=== PATIENT | male | born 1995 | race Caucasian/White ===

== ENCOUNTER 2016-12-28 23:25 | Emergency (ER) | payer SELFPAY ==
[~2016-12-28] VITALS: Ht 185.4 cm; Wt 217.7 kg
[~2016-12-28 23:25] MED LIST: ALBU8.5H2 IH; AMOX1TAB63 PO; BENZ100C8 PO; CEFD300C3 PO; D-ME118S33 PO; FAMO-119 PO; PRD20T PO; SUCR1TAB36 PO; SULF1TAB38 PO
[2016-12-28] MEDS ORDERED: ONDANSETRON 4 MG/2 ML (SDV) Z0FRAN IVP ONE (23:45)
[2016-12-29 00:20] LABS: BILIRUBIN,URINE NEGATIVE (NEGATIVE); KETONES,URINE NEGATIVE (NEGATIVE); LEUKOCYTE ESTERASE ,URINE 1+ (NEGATIVE); NITRITE,URINE NEGATIVE (NEGATIVE); PH,URINE 7 (5-9); PROTEIN,URINE NEGATIVE (NEGATIVE); UROBILINOGEN,URINE 4 MG/DL (NORMAL)
[2016-12-29 00:24] LABS: BASOPHILS # (AUTO) 0.1 10^3/uL (0.0-0.1); BASOPHILS % (AUTO) 0 % (0-10); EOSINOPHILS # (AUTO) 0.3 10^3/uL (0.0-0.3); EOSINOPHILS % (AUTO) 2 % (0-10); LYMPHOCYTES # (AUTO) 3.1 X 10^3 (1.0-4.0); LYMPHOCYTES % (AUTO) 21 % (12-44); MEAN CORPUSCULAR HEMOGLOBIN 28 PG (25-34); MEAN CORPUSCULAR HGB CONC 32 G/DL (32-36); MEAN CORPUSCULAR VOLUME 87 FL (80-99); MEAN PLATELET VOLUME 10.3 FL (7.4-10.4); MONOCYTES # (AUTO) 0.9 X 10^3 (0.0-1.0); MONOCYTES % (AUTO) 6 % (0-12); NEUTROPHILS # (AUTO) 10.3 X 10^3 (1.8-7.8); NEUTROPHILS % (AUTO) 70 % (42-75); PLATELET COUNT 350 10^3/uL (130-400); RED BLOOD COUNT 4.71 10^6/uL (4.35-5.85); RED CELL DISTRIBUTION WIDTH 13.9 % (10.0-14.5); WHITE BLOOD COUNT 14.7 10^3/uL (4.3-11.0)
--- NOTE | 2016-12-29 00:25 | ED Abdominal Pain ---
General Chief Complaint: Abdominal/GI Problems Stated Complaint: UPPER RIGHT SIDE ABD/BACK PAIN Nursing Triage Note: ruq abdominal pain since 1800 Sepsis Screen: No Definite Risk Source of Information: Patient, Old Records Exam Limitations: No Limitations History of Present Illness Time Seen By Provider: 23:31 Initial Comments This 21-year-old gentleman presents to the emergency room with complaints of right upper quadrant pain radiating to the back. He had an episode lasting from 18:00 through 21:00. The pain started up again at 23:00. He ate pizza this evening at 19:00. He only ate one piece due to the pain. He has been drinking water since then. He reports having episodes of lesser pain previously that starts about 15-30 minutes after eating. Today he had nothing to eat before the first episode. He denies any constipation or diarrhea. He has nausea without vomiting. He denies any urinary symptoms. He has had sweats along with his pain but no fever. He currently rates his pain as 7/10. He states applying pressure to the right upper quadrant helps alleviate the pain. He ambulated into the emergency room and troponin himself here. He reports being evaluated last summer for a similar symptomatology. Review of the notes suggest that his pain was more epigastric at that time and felt to be related to ulcers or gastritis. He had been prescribed Pepcid therapy at that time. He has not been using antacid medication recently but he does continue to use sucralfate. His primary care provider is the [facility] clinic. Allergies and Home Medications Allergies Coded Allergies: No Known Drug Allergies (Unverified , 04/11/12) Home Medications Omeprazole 20 Mg Tablet.dr, 20 MG PO BID, #30 Prescribed by: SAMUEL LUCIANO on 12/29/16 0210 Review of Systems Constitutional: no symptoms reported EENTM: No Symptoms Reported Respiratory: No Symptoms Reported Cardiovascular: No Symptoms Reported Gastrointestinal: See HPI Genitourinary: No Symptoms Reported Musculoskeletal: no symptoms reported Skin: no symptoms reported Psychiatric/Neurological: No Symptoms Reported Endocrine: No Symptoms Reported Past Ceefpdq-Acbcnm-Czsjkp Hx Patient Social History Alcohol Use: Denies Use Recreational Drug Use: No Smoking Status: Never a Smoker 2nd Hand Smoke Exposure: No Recent Foreign Travel: No Contact w/Someone Who Travel: No Recent Infectious Disease Expo: No Recent Hopitalizations: No Seasonal Allergies Seasonal Allergies: No Surgeries HX Surgeries: No Respiratory Hx Respiratory Disorders: No Cardiovascular Hx Cardiac Disorders: No Neurological Hx Neurological Disorders: No Reproductive System Hx Reproductive Disorders: No Sexually Transmitted Disease: No Genitourinary Hx Genitourinary Disorders: No Gastrointestinal Hx Gastrointestinal Disorders: Yes Gastrointestinal Disorders: Gastroesophageal Reflux Musculoskeletal Hx Musculoskeletal Disorders: No Endocrine Hx Endocrine Disorders: Yes (morbid obesity) HEENT HX ENT Disorders: No Cancer Hx Cancer: No Psychosocial Hx Psychiatric Problems: No Integumentary HX Skin/Integumentary Disorder: No Blood Transfusions Hx Blood Disorders: No Physical Exam Vital Signs VS - Last 72 Hours, by Label 12/28/16 12/29/16 23:41 02:20 Temp 97.2 97.8 Pulse 95 90 Resp 20 20 B/P (MAP) 164/114 Pulse Ox 97 96 O2 Delivery Room Air Capillary Refill : Less Than 3 Seconds General Appearance: WD/WN, mild distress, obese HEENT: PERRL/EOMI, normal ENT inspection Neck: normal inspection Respiratory: lungs clear, normal breath sounds, no respiratory distress, no accessory muscle use Cardiovascular: regular rate, rhythm, no edema, no murmur Gastrointestinal: normal bowel sounds, soft, tenderness (right upper quadrant) Extremities: normal inspection Back: no CVA tenderness Neurologic/Psychiatric: grey tender II-XII nml as tested, no motor/sensory deficits, alert, normal mood/affect, oriented x 3 Skin: normal color, warm/dry Progress/Results/Core Measures Results/Orders Lab Results Laboratory Tests Test 12/28/16 23:45 12/28/16 23:50 Range/Units Urine Color YELLOW Urine Clarity CLEAR Urine pH 7 5-9 Urine Specific [place] 1.015 L 1.016-1.022 Urine Protein NEGATIVE NEGATIVE Urine Glucose (UA) NEGATIVE NEGATIVE Urine Ketones NEGATIVE NEGATIVE Urine Nitrite NEGATIVE NEGATIVE Urine Bilirubin NEGATIVE NEGATIVE Urine Urobilinogen 4 H NORMAL MG/DL Urine Leukocyte Esterase 1+ H NEGATIVE Urine RBC (Auto) NEGATIVE NEGATIVE Urine RBC NONE /HPF Urine WBC RARE /HPF Urine Squamous Epithelial Cells RARE /HPF Urine Crystals PRESENT H /LPF Urine Amorphous Sediment FEW CASIMIRO PHOSPHATE H /LPF Urine Bacteria TRACE /HPF Urine Casts NONE /LPF Urine Mucus NEGATIVE /LPF Urine Culture Indicated NO White Blood Count 14.7 H 4.3-11.0 10^3/uL Red Blood Count 4.71 4.35-5.85 10^6/uL Hemoglobin 13.0 L 13.3-17.7 G/DL Hematocrit 41 40-54 % Mean Corpuscular Volume 87 80-99 FL Mean Corpuscular Hemoglobin 28 25-34 PG Mean Corpuscular Hemoglobin Concent 32 32-36 G/DL Red Cell Distribution Width 13.9 10.0-14.5 % Platelet Count 350 130-400 10^3/uL Mean Platelet Volume 10.3 7.4-10.4 FL Neutrophils (%) (Auto) 70 42-75 % Lymphocytes (%) (Auto) 21 12-44 % Monocytes (%) (Auto) 6 0-12 % Eosinophils (%) (Auto) 2 0-10 % Basophils (%) (Auto) 0 0-10 % Neutrophils # (Auto) 10.3 H 1.8-7.8 X 10^3 Lymphocytes # (Auto) 3.1 1.0-4.0 X 10^3 Monocytes # (Auto) 0.9 0.0-1.0 X 10^3 Eosinophils # (Auto) 0.3 0.0-0.3 10^3/uL Basophils # (Auto) 0.1 0.0-0.1 10^3/uL Neutrophils % (Manual) 72 % Lymphocytes % (Manual) 20 % Monocytes % (Manual) 4 % Eosinophils % (Manual) 2 % Basophils % (Manual) 0 % Band Neutrophils 0 % Reactive Lymphocytes 2 % Polychromasia SLIGHT Anisocytosis SLIGHT Sodium Level 141 135-145 MMOL/L Potassium Level 4.0 3.6-5.0 MMOL/L Chloride Level 106 98-107 MMOL/L Carbon Dioxide Level 25 21-32 MMOL/L Anion Gap 10 5-14 MMOL/L Blood Urea Nitrogen 10 7-18 MG/DL Creatinine 0.94 0.60-1.30 MG/DL Estimat Glomerular Filtration Rate > 60 BUN/Creatinine Ratio 11 Glucose Level 114 H 70-105 MG/DL Calcium Level 9.4 8.5-10.1 MG/DL Total Bilirubin 0.2 0.1-1.0 MG/DL Aspartate Amino Transf (AST/SGOT) 20 5-34 U/L Alanine Aminotransferase (ALT/SGPT) 27 0-55 U/L Alkaline Phosphatase 107 40-136 U/L Total Protein 7.0 6.4-8.2 G/DL Albumin 4.0 3.2-4.5 G/DL Lipase 13 8-78 U/L My Orders Orders - SAMUEL MENESES MD Cbc With Automated Diff (12/28/16 23:40) Comprehensive Metabolic Panel (12/28/16 23:40) Lipase (12/28/16 23:40) Ua Culture If Indicated (12/28/16 23:40) Saline Lock/Iv-Start (12/28/16 23:40) Ondansetron Injection (Zofran Injectio (12/28/16 23:45) Manual Differential (12/28/16 23:50) Us Gallbladder 11349 (12/29/16 00:36) Lidocaine 2% Viscous 15 Ml (Xylocaine Vi (12/29/16 01:30) Antacid Suspension (Mylanta Suspension (12/29/16 01:30) Pantoprazole Tablet (Protonix Tablet) (12/29/16 02:15) Medications Given in ED Current Medications Medications Dose Ordered Sig/[place] Route Start Time Stop Time Status Last Admin Dose Admin Al Hydrox/Mg Hydrox/Simethicone 30 ml ONCE ONCE PO 12/29/16 01:30 12/29/16 01:31 DC 12/29/16 01:32 30 ML Lidocaine HCl 15 ml ONCE ONCE PO 12/29/16 01:30 12/29/16 01:31 DC 12/29/16 01:32 15 ML Ondansetron HCl 8 mg ONCE ONCE IVP 12/28/16 23:45 12/28/16 23:46 DC 12/28/16 23:53 8 MG Pantoprazole Sodium 40 mg ONCE ONCE PO 12/29/16 02:15 12/29/16 02:16 DC 12/29/16 02:09 40 MG Vital Signs/I&O Vital Sign - Last 12Hours 12/28/16 12/29/16 23:41 02:20 Temp 97.2 97.8 Pulse 95 90 Resp 20 20 B/P (MAP) 164/114 Pulse Ox 97 96 O2 Delivery Room Air Blood Pressure Mean: 131 Progress Note : Progress Note Patient was found to have leukocytosis on his labs. Ultrasound of the gallbladder was therefore ordered. Ultrasound revealed a normal gallbladder with presence of fatty liver disease. A GI cocktail was administered which completely relieved his pain. Discharge instructions were reviewed with patient. Diagnostic Imaging Diagonstic Imaging: Ultrasound Plain Films/CT/US/NM/MRI: abdomen Comments Gallbladder ultrasound discussed with the fish and wildlife technician. [employer] report reviewed. Hepatomegaly noted with echogenic liver that may be from fatty infiltrate or hepatocellular disease. Gallbladder was unremarkable. Pancreas and common bile duct were obscured. Departure Impression Impression: Primary Impression: Right upper quadrant pain Additional Impressions: Fatty liver disease, nonalcoholic Leukocytosis Qualified Codes: D72.829 - Elevated white blood cell count, unspecified Disposition: HOME, SELF-CARE Condition: Improved Departure-Patient Inst. Decision time for Depature: 01:50 Referrals: [facility] (PCP/Family) Primary Care Physician Patient Instructions: Nonalcoholic Fatty Liver Disease (DC), Acute Abdomen ( Belly Pain), Adult (DC) Add. Discharge Instructions: You may continue using Carafate (sucralfate) up to 4 times daily. It is best if used 30 minutes before meals and before bedtime. Add omeprazole 20 mg twice daily for 2 weeks and then decrease to once daily. Continue omeprazole as a maintenance medication until otherwise instructed by your doctor. Avoid the following: Large meals, eating close to bedtime, fatty or greasy foods , caffeine, carbonation, chocolate, alcohol, citrus fruits and juices, tomato products, spicy foods, mint, NSAID medications such as ibuprofen or naproxen, or anything else you know irritates your stomach. Weight loss will help reduce pressure on your stomach as well. The ultrasound noted fatty liver disease which can also cause pain. The treatment for fatty liver disease is weight loss. Please follow-up with your primary care provider within the next 2 weeks. Discuss endoscopy for further evaluation of your pain. All discharge instructions reviewed with patient and/or family. Voiced understanding. Scripts Omeprazole (Omeprazole) 20 Mg Tablet. 20 MG PO BID, #30 TAB Prov: SAMUEL MENESES MD 12/29/16 Copy Copies To 1: DIAN NEAL MD, JOSHUA T MD December 29, 2016 00:25
[2016-12-29 00:32] LABS: SQUAMOUS EPITHELIAL CELL,UR RARE /HPF; WBC,URINE RARE /HPF
[2016-12-29 00:42] LABS: ANISOCYTOSIS SLIGHT; BAND NEUTROPHILS 0 %; BASOPHILS % (MANUAL) 0 %; EOSINOPHILS % (MANUAL) 2 %; LYMPHOCYTES % (MANUAL) 20 %; NEUTROPHILS % (MANUAL) 72 %; POLYCHROMASIA SLIGHT; REACTIVE LYMPHOCYTES 2 %
[2016-12-29 00:43] LABS: ALANINE AMINOTRANSFERASE 27 U/L (0-55); ANION GAP 10 MMOL/L (5-14); ASPARTATE AMINO TRANSFERASE 20 U/L (5-34); BILIRUBIN,TOTAL 0.2 MG/DL (0.1-1.0); BLOOD UREA NITROGEN 10 MG/DL (7-18); BUN/CREATININE RATIO 11; CALCIUM 9.4 MG/DL (8.5-10.1); CARBON DIOXIDE 25 MMOL/L (21-32); CHLORIDE 106 MMOL/L (98-107); CREATININE SERUM 0.94 MG/DL (0.60-1.30); GFR ESTIMATED > 60; GLUCOSE 114 MG/DL (70-105); LIPASE 13 U/L (8-78); SODIUM 141 MMOL/L (135-145)
[2016-12-29] MEDS ORDERED: LIDOCAINE 2% VISCOUS 15 ML UDC PO ONE (01:30)
[2016-12-29] MEDS ORDERED: ANTACID SUSP 30 ML UDC (MYLANTA) PO ONE (01:30)
[2016-12-29] MEDS ORDERED: OMEP20TA7 PO (02:10)
[2016-12-29] MEDS ORDERED: PANTOPRAZOLE 40 MG (PROTONIX) TAB PO ONE (02:15)
[2016-12-29 02:20] VITALS: BP 144/98
--- NOTE | 2016-12-29 07:20 | Diagnostic Imaging Report ---
PROCEDURE: US Gallbladder. TECHNIQUE: Multiple real-time grayscale images were obtained over the right upper quadrant in various projections. INDICATION: Right upper quadrant pain. Findings: The pancreas is largely obscured. The liver is hyperechoic with increased attenuation of ultrasound beam, may relate to hepatic fatty infiltration or hepatitis. The craniocaudal measurement in the right hepatic lobe is 20 CM, suggestive of enlargement. The gallbladder demonstrate no stones, wall thickening or pericholecystic fluid. The CBD is obscured by bowel gas. The right kidney is 11.4 CM in length with no hydronephrosis or focal lesion. Hepatopetal flow in the portal vein is demonstrated. No fluid collection is demonstrated in the upper right abdomen. Sonographic Hamilton sign is not evaluated on this exam. IMPRESSION: 1. No gallstones or evidence of cholecystitis. 2. Hepatomegaly. Increased liver echogenicity could be related to underlying steatosis or hepatitis. Dictated by: Dictated on workstation # [id number]
== END 2016-12-29 02:16 | disposition home or self-care (01) ==
LOC: EDUNIT# 23:25 → ER 23:28
DX: R10.11 Right upper quadrant pain (principal); K76.0 Fatty (change of) liver, not elsewhere classified; D72.829 Elevated white blood cell count, unspecified; R11.0 Nausea
CPT/HCPCS: 36415; 76705; 80053; 81000; 83690; 85007; 85027; 96374

== ENCOUNTER 2018-10-21 22:05 | Emergency (ER) | payer SELFPAY ==
[~2018-10-21] VITALS: Ht 185.4 cm; Wt 217.7 kg
[~2018-10-21 22:05] MED LIST changes: +OMEP20TA7 PO
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
[2018-10-21] MEDS ORDERED: IBUPROFEN 800 MG (MOTRIN) TAB PO ONE (22:45)
[2018-10-21] MEDS ORDERED: ACETAMINOPHEN 500 MG TAB (TYLENOL) PO ONE (22:45)
--- NOTE | 2018-10-21 22:46 | ED Fever ---
History of Present Illness General Stated Complaint: FEVER Source: patient Exam Limitations: no limitations History of Present Illness Date Seen by Provider: Oct 21, 2018 Time Seen by Provider: 22:27 Initial Comments 23-year-old male who presents to the emergency room with complaints of a fever, coughing, congestion that started this morning around 8:00. He denies taking anything for his fever. His children and his are also being seen and evaluated in the emergency room for similar complaints. He reports that 4 days ago his oldest daughter was sent home from the emergency room for a fever and suspected influenza. Timing/Duration: this morning Fever Quality: low grade Associated Symptoms: muscle aches, other (congestion) Allergies and Home Medications Allergies Coded Allergies: No Known Drug Allergies (Unverified , 04/11/12) Home Medications Omeprazole 20 Mg Tablet.dr, 20 MG PO BID Prescribed by: SAMUEL LUCIANO on 12/29/16 0210 Patient Home Medication List Home Medication List Reviewed: Yes Review of Systems Review of Systems Constitutional: see HPI, fever EENTM: see HPI, nose congestion Respiratory: see HPI, cough All Other Systems Reviewed Negative Unless Noted: Yes Past Yalpsdq-Ygizov-Ldpvjc Hx Past Med/Social Hx: Reviewed Nursing Past Med/Soc Hx Patient Social History 2nd Hand Smoke Exposure: No Recent Foreign Travel: No Contact w/Someone Who Travel: No Recent Hopitalizations: No Seasonal Allergies Seasonal Allergies: No Past Medical History Surgeries: No Respiratory: No Cardiac: No Neurological: No Reproductive Disorders: No Sexually Transmitted Disease: No Genitourinary: No Gastrointestinal: Yes Gastroesophageal Reflux Musculoskeletal: No Endocrine: No HEENT: No Cancer: No Psychosocial: No Integumentary: No Blood Disorders: No Family Medical History Reviewed Nursing Family Hx Physical Exam Vital Signs - First Documented 10/21/18 10/21/18 22:48 23:11 Temp 99.5 Pulse 101 Resp 22 B/P (MAP) 149/101 (117) Pulse Ox 94 O2 Delivery Room Air Capillary Refill : Height: 6'1.00" Weight: 480lbs. oz. 217.747781ye; 60.98 BMI Method:Stated General Appearance: WD/WN, no apparent distress HEENT: PERRL/EOMI, normal ENT inspection, TMs normal, pharynx normal Respiratory: chest non-tender, lungs clear, normal breath sounds, no respiratory distress, no accessory muscle use, respiratory distress Cardiovascular: normal peripheral pulses, regular rate, rhythm, no edema, no gallop, no JVD, no murmur Extremities: normal capillary refill Neurologic/Psychiatric: alert, normal mood/affect, oriented x 3 Skin: normal color, warm/dry Progress/Results/Core Measures Suspected Sepsis SIRS Temperature: Pulse: Respiratory Rate: Blood Pressure / Mean: Results/Orders Micro Results Microbiology 10/21/18 Influenza Types A,B Antigen (MIKE) - Final, Complete My Orders Orders - RAI TAY Influenza A And B Antigens (10/21/18 22:27) Acetaminophen Tablet (Tylenol Tablet) (10/21/18 22:45) Ibuprofen Tablet (Motrin Tablet) (10/21/18 22:45) Rx-Oseltamivir Caps (Rx-Tamiflu Caps) (10/21/18 23:10) Vital Signs/I&O 10/21/18 10/21/18 10/21/18 10/22/18 22:48 22:49 23:11 07:46 Temp 99.5 99.5 99.5 99.5 Pulse 101 101 Resp 22 22 B/P (MAP) 149/101 (117) 149/101 (117) Pulse Ox 94 94 O2 Delivery Room Air Capillary Refill : Progress Note : Time: 23:09 Progress Note I have seen and evaluated the patient. I've informed him of his laboratory findings. We will be treating with Tamiflu. He agrees with plan of care, plans for discharge, return precautions were given. Departure Impression Primary Impression: Influenza A Disposition: 01 HOME, SELF-CARE Condition: Stable/Unchanged Departure-Patient Inst. Decision time for Depature: 23:09 Referrals: [facility] (PCP/Family) Primary Care Physician Patient Instructions: Flu Add. Discharge Instructions: Take medications as directed. Tylenol and Motrin as directed by the bottle for pain and fever relief. Drink plenty of clear liquids to stay hydrated. Return back to the emergency room for worsening symptoms or concerns as needed. Follow- up with her primary care provider within 1 week for recheck. RAI TAY Oct 21, 2018 22:46
[2018-10-21] MEDS ORDERED: RX-OSELTAMIVIR 75 MG (TAMIFLU) BOX OF 10 PO STA (23:10)
[2018-10-22 07:46] VITALS: BP 149/101
== END 2018-10-21 23:39 | disposition home or self-care (01) ==
LOC: EDUNIT# 22:05 → ER 22:07
DX: J10.1 Influenza due to other identified influenza virus with other respiratory manifestations (principal); K21.9 Gastro-esophageal reflux disease without esophagitis
CPT/HCPCS: 87804

== ENCOUNTER 2018-11-12 00:02 | Emergency (ER) | payer OTHER ==
[~2018-11-12] VITALS: Ht 188 cm; Wt 208.2 kg
--- OUTSIDE RECORDS SUMMARY | 2018-11-12 00:11 | XMS REPORT | Continuity of Care Document ---
Author Author [facility] Address Unknown Phone Unavailable Allergies Active Description Code Type Severity Reaction Onset Reported/Identified Relationship to Patient Clinical Status Yes No Known Drug Allergies [id number] Drug Allergy Unknown N/A 04/11/2012 Medications There [...] NICOTINE DEPENDENCE, CIGARETTES, UNCOMPL 10/04/2015 ANABEL HAWKINS WELDER PRODUCTION LINE GAS Ot H66.91 OTITIS MEDIA, UNSPECIFIED, RIGHT EAR 10/04/2015 ANABEL HAWKINS W[employer] GAS Ot J40 BRONCHITIS, NOT SPECIFIED ACUTE OR [...] GIDEON GILL, SAMUEL Vidal Ot R11.0 NAUSEA 12/29/2016 GIDEON GILL, SAMUEL Vidal Ot D72.829 ELEVATED WHITE BLOOD CELL COUNT, UNSPECI 12/29/2016 SAMUEL MENESES MD Ot K76.0 FATTY (CHANGE OF) LIVER, NOT ELSEWHERE C 12/29/2016 SAMUEL MENESES MD Ot R10.11 RIGHT UPPER QUADRANT PAIN 12/29/2016 SAMUEL MENESES MD Ot R11.0 NAUSEA 10/21/2018 RAI TAY Ot J10.1 FLU DUE TO OTH IDENT INFLUENZA VIRUS W O 10/21/2018 RAI TAY Ot K21.9 GASTRO-ESOPHAGEAL REFLUX DISEASE WITHOUT 10/21/2018 RAI TAY Ot R50.9 FEVER, UNSPECIFIED 10/23/2018 RAI TAY Ot J10.1 FLU DUE TO OTH IDENT INFLUENZA VIRUS W O 10/23/2018 RAI TAY Ot K21.9 GASTRO-ESOPHAGEAL REFLUX DISEASE WITHOUT 10/23/2018 RAI TAY Ot R50.9 FEVER, UNSPECIFIED 10/28/2018 RAI TAY Ot J10.1 FLU DUE TO OTH IDENT INFLUENZA VIRUS W O 10/28/2018 RAI TAY Ot K21.9 GASTRO-ESOPHAGEAL REFLUX DISEASE WITHOUT 10/28/2018 RAI TAY Ot R50.9 FEVER, UNSPECIFIED Procedures Code [place] [address] URINE DRUG SCREEN (IN-HOUSE ) 06/17/2013 62079 MRI EXTREMITY JOINT, LOWER LEFT, W/O CONTRAST [...] - 12/28/16 23:50 Lipase 13 U/L 8-78 Influenza virus A and B antigen detection - 10/21/18 22:27 CALL POSITIVES (F1 HELP) CALLED TO ER AT 2309 NRG FLU RESULT POSITIVE FOR INFLUENZA A ANTIGEN, NEG FOR B ANTIGEN, BY IA NRG Encounters ACCT No. Visit Date/Time Discharge Status Pt. Type Provider Facility Loc./Unit Complaint [id number] 06/17/2013 16:03:00 06/17/2013 23:59:59 CLS Outpatient DONATO SHARP DO [id number] 06/17/2013 16:03:00 06/17/2013 23:59:59 CLS Outpatient DONATO SHARP DO [id number] 10/21/2018 22:07:00 10/21/2018 23:39:00 DIS Outpatient RAI TAY [facility] ER FEVER [id number] 12/28/2016 23:28:00 12/29/2016 02:16:00 DIS Emergency SAMUEL MENESES MD Via [facility] ER UPPER RIGHT SIDE ABD/ BACK PAIN [id number] 03/05/2016 04:23:00 03/05/2016 06:12:00 DIS Emergency LANCE ZIMMERMAN DO Via [facility] ER CHEST AND BACK PAIN [id number] 10/04/2015 19:53:00 10/04/2015 21:36:00 DIS Emergency ANABEL HAWKINS APRN [facility] ER CONGESTION,EAR PAIN [id number] 06/03/2014 00:21:00 06/03/2014 02:18:00 DIS Emergency MAURICIO ESCOBEDO DO Via [facility] ER COUGH,EAR PAIN,SINUSES STUFFED UP [id number] 02/17/2013 19:46:00 02/17/2013 23:59:59 CLS Emergency [id number] 01/27/2013 23:21:00 01/27/2013 23:53:00 DIS Emergency [id number] 10/04/2015 19:54:00 Document Registration [id number] 08/13/2012 15:57:00 Document Registration [id number] 04/11/2012 16:52:00 Document Registration [id number] 08/22/2018 14:00:00 08/22/2018 23:59:[address] [facility]
[2018-11-12] MEDS ORDERED: RX-ALBUTEROL INHALER (PROAIR) 8 GM IH STA (00:28)
[2018-11-12] MEDS ORDERED: KETOROLAC 30 MG/ML VIAL IM ONE (00:30)
[2018-11-12] MEDS ORDERED: AMOXICILLIN 500 MG (POLYMOX) CAP PO STA (01:15)
[2018-11-12] MEDS ORDERED: AMOX500C2 PO (01:24)
[2018-11-12] MEDS ORDERED: FLUT9.9S NS (01:24)
--- NOTE | 2018-11-12 01:24 | ED Respiratory ---
General Chief Complaint: Cough/Cold/Flu Symptoms Stated Complaint: COUGH,POSS SINUS INFECTION Nursing Triage Note: PT AMB TO ROOM #10 W/O DIFFICULTY. A&OX4. C./O COUGH, CONGESTION, AND RT EAR PAIN FOR APPROX X3 WKS. PT STATES, "I GET TO COUGHING SO BAD I MAKE MYSELF VOMIT." REPORTS RT EAR PAIN RADIATES TO RT JAW. PT REPORTS HIS FAMILY WAS DIAGNOSED WITH INFLUENZA APPROX X3 WKS AGO AND COMPLETED PROPHYLACTIC TAMFILU PRESCRIPTION. MOIST HACKING COUGH NOTED. PROVIDER IN ROOM DURING TRIAGE. Source: patient Exam Limitations: no limitations History of Present Illness Date Seen by Provider: Nov 12, 2018 Allergies and Home Medications Allergies Coded Allergies: No Known Drug Allergies (Unverified , 04/11/12) Home Medications Omeprazole 20 Mg Tablet.dr, 20 MG PO BID Prescribed by: SAMUEL LUCIANO on 12/29/16 0210 Past Jqztdpd-Ruzuqz-Lddoyj Hx Patient Social History Alcohol Use: Rarely Uses Recreational Drug Use: No Smoking Status: Current Everyday Smoker Type Used: Cigarettes 2nd Hand Smoke Exposure: No Recent Foreign Travel: No Contact w/Someone Who Travel: No Recent Infectious Disease Expo: No Recent Hopitalizations: No Seasonal Allergies Seasonal Allergies: No Past Medical History Surgeries: No Respiratory: No Cardiac: No Neurological: No Reproductive Disorders: No Sexually Transmitted Disease: No Genitourinary: No Gastrointestinal: Yes Gastroesophageal Reflux Musculoskeletal: No Endocrine: Yes (morbid obesity) HEENT: No Cancer: No Psychosocial: No Integumentary: No Blood Disorders: No Physical Exam Vital Signs - First Documented 11/12/18 00:17 Temp 98.7 Pulse 101 Resp 22 B/P (MAP) 174/114 (134) Pulse Ox 97 O2 Delivery Room Air Capillary Refill : Less Than 3 Seconds Height: 6'2.00" Weight: 459lbs. oz. 208.840793ul; 60.98 BMI Method:Stated Progress/Results/Core Measures Suspected Sepsis Recent Fever Within 48 Hours: Yes Infection Criteria Present: Suspected New Infection New/Unexplained Altered Menta: No Sepsis Screen: Possible Sepsis Risk SIRS Temperature:98.7 Pulse: 101 Respiratory Rate: 22 Blood Pressure 174 /114 Mean: 134 Results/Orders Micro Results Microbiology 11/12/18 Influenza Types A,B Antigen (MIKE) - Final, Complete My Orders Orders - SAMUEL MENESES MD Chest Pa/Lat (2 View) (11/12/18 00:25) Influenza A And B Antigens (11/12/18 00:25) Ketorolac Injection (Toradol Injection) (11/12/18 00:30) Rx-Albuterol Inhaler (Rx-Proair) (11/12/18 00:28) Amoxicillin Capsule (Polymox Capsule) (11/12/18 01:15) Medications Given in ED Current Medications Medications Dose Ordered Sig/[place] Route Start Time Stop Time Status Last Admin Dose Admin Ketorolac Tromethamine 30 mg ONCE ONCE IM 11/12/18 00:30 11/12/18 00:31 DC 11/12/18 00:48 30 MG Vital Signs/I&O 11/12/18 11/12/18 00:17 00:17 Temp 98.7 Pulse 101 Resp 22 B/P (MAP) 174/114 (134) Pulse Ox 97 O2 Delivery Room Air Room Air Capillary Refill : Less Than 3 Seconds Blood Pressure Mean: 134 Departure Impression Primary Impression: Acute bronchitis Qualified Codes: J20.9 - Acute bronchitis, unspecified Additional Impression: Right otitis media Qualified Codes: H66.91 - Otitis media, unspecified, right ear Disposition: HOME, SELF-CARE Condition: Stable Departure-Patient Inst. Decision time for Depature: 01:20 Referrals: [facility] (PCP/Family) Primary Care Physician Patient Instructions: Acute Bronchitis, Adult (DC), Ear Infections (Otitis Media) Add. Discharge Instructions: Complete the entire 10 day course of antibiotics. For pain you may take ibuprofen up to 600 mg every 6 hours as needed. Add Tylenol (acetaminophen) up to 1000 mg every 6 hours as needed. Use Flonase as prescribed to help with sinus drainage and nasal inflammation. This should help reduce your cough. Drastically reduce your smoking and work toward quitting. Seek help from your primary care provider if necessary. Use your inhaler up to 2 puffs every 2 hours as needed for wheezing, shortness of breath, or uncontrolled cough. Return to care if symptoms worsen despite treatment. All discharge instructions reviewed with patient and/or family. Voiced understanding. Scripts Fluticasone Propionate (Flonase Allergy Relief) 9.9 Ml [place].susp 2 SPRAY NS DAILY, #1 EACH 2 SPRAYS PER NOSTRIL DAILY X 2 DAYS THEN 1 SPRAY DAILY Prov: SAMUEL MENESES MD 11/12/18 Amoxicillin (Amoxicillin) 500 Mg Capsule 1000 MG PO TID, #60 CAP Prov: SAMUEL MENESES MD 11/12/18 SAMUEL MENESES MD Nov 12, 2018 01:24
[2018-11-12 01:37] VITALS: BP 145/106
--- NOTE | 2018-11-12 06:13 | Diagnostic Imaging Report ---
CLINICAL INDICATION: Patient with cough. EXAM: Chest x-ray PA and lateral views. COMPARISONS: Chest x-ray dated 10/04/2015. FINDINGS: Lungs/pleura: Lungs are clear. There is no pneumothorax. There is no pleural effusion. Mediastinum: Unremarkable. Pulmonary vasculature: Unremarkable. Heart: Unremarkable. Bones/extrathoracic soft tissue: Unremarkable. IMPRESSION: There is no radiographic evidence of acute cardiopulmonary process. Dictated by: Dictated on workstation # [id number]
== END 2018-11-12 01:37 | disposition home or self-care (01) ==
LOC: EDUNIT# 00:02 → ER 00:07
DX: J20.9 Acute bronchitis, unspecified (principal); H66.91 Otitis media, unspecified, right ear; K21.9 Gastro-esophageal reflux disease without esophagitis; E66.01 Morbid (severe) obesity due to excess calories; F17.210 Nicotine dependence, cigarettes, uncomplicated; Z68.44 Body mass index [BMI] 60.0-69.9, adult
CPT/HCPCS: 71046; 87804